=== PATIENT | female | born 1930 | race Caucasian/White ===

== ENCOUNTER 2017-03-01 03:04 | Inpatient (IN) | payer OTHER ==
[~2017-03-01] VITALS: Ht 147.3 cm; Wt 60.9 kg
[~2017-03-01 03:04] MED LIST: ACET325T14 PO; ARANESP; ASPI-621 PO; CARV12.52 PO; CEFD300C37 PO; CHOL200024 PO; CHOL40002 PO; CYAN1TAB29 PO; DARB60DI SQ; FOLI-17 PO; FURO-92 PO; FURO-93 PO; FURO20TA3 PO; GABA-826 PO; IBUP-1221 PO; INSU100C SQ-INSULIN; INSU100I28 SQ-INSULIN; INSU100V5 SQ-INSULIN; INSU100V8 SQ; ISOS30TA8 PO; LISI-167 PO; LISI40TA PO; LOVA40TA2; LOVA40TA2 PO; METO-93 PO; METO-99 PO; MORP15TA; MORP15TA3 PO; MORP30CP12 PO; MORP30TA3 PO; NITR0.4T28 SL; OXYC1TAB7 PO; OXYC5CAP2 PO; RANI150T4 PO; SENN-99 PO; SENN1TAB94 PO; TICA90TA PO; VITAMIN B 12; VITAMIN B12 PO; [UNRECOGNIZED DRUG - REMARK]
[2017-03-01] MEDS ORDERED: MORPHINE SULFATE 4 MG/ML, 1ML IVPush PRN (03:30)
[2017-03-01] MEDS ORDERED: MORPHINE SULFATE 4 MG/ML, 1ML ONE (03:39)
[2017-03-01 03:43] LABS: ASPARTATE AMINO TRANSFERASE 27 U/L (15-37); BLOOD UREA NITROGEN 49 mg/dL (7-18)
[2017-03-01 03:47] LABS: DIFF TOTAL CELLS COUNTED 100 CELL DIFF; HEMATOCRIT 29.3 % (34.6-47.8); HEMOGLOBIN 9.3 g/dL (11.7-16.4)
[2017-03-01 03:50] LABS: ANISOCYTOSIS 2+; HYPOCHROMIA 1+; OVALOCYTES 1+; POIKILOCYTOSIS 1+; POLYCHROMASIA 1+; VERIFY COUNTS? YES
[2017-03-01 03:51] LABS: SCHISTOCYTES 1+
[2017-03-01 03:53] LABS: LARGE PLATELETS 1+
[2017-03-01 03:56] LABS: IS PT STATUS REG ER OR PRE ER? YES
[2017-03-01] MEDS ORDERED: FUROSEMIDE 40 MG/4 ML IV ONE (04:30)
[2017-03-01] MEDS ORDERED: NITROGLYCERIN/D5W PMX 250 ML IV SCH (04:34)
[2017-03-01] MEDS ORDERED: HEPARIN 25,000 UNITS/500ML PMX 500 ML ONE (04:50)
[2017-03-01] MEDS ORDERED: FUROSEMIDE 40 MG/4 ML ONE (04:52)
[2017-03-01] MEDS ORDERED: NITROGLYCERIN SINGLE TAB 0.4 MG SL ONE (05:00)
[2017-03-01] MEDS ORDERED: HEPARIN 5,000 UNITS/ML, 1ML IV ONE (05:00)
[2017-03-01] MEDS: HEPARIN 25,000 UNITS/500ML PMX 500 ML IV PRN ×2 (05:08→05:10)
[2017-03-01 06:21] LABS: ABG COLLECTION SITE RIGHT RADIAL; COLLATERAL CIRCULATION TESTING NORMAL
[2017-03-01] MEDS ORDERED: ONDANSETRON 2MG/ML, 2ML IVPush PRN (07:30)
[2017-03-01] MEDS ORDERED: FUROSEMIDE 20 MG TABLET PO SCH (09:00)
[2017-03-01] MEDS ORDERED: CEFTRIAXONE 1,000 MG IM SCH (09:00)
[2017-03-01] MEDS ORDERED: CEFTRIAXONE PMX 1GM/50ML 50 ML ONE (09:15)
[2017-03-01] MEDS: CARVEDILOL 12.5 MG TABLET PO SCH ×2 (09:53→17:43)
[2017-03-01] MEDS: ISOSORBIDE MONONITRATE ER 30 MG TABLET PO SCH (09:53)
[2017-03-01] MEDS: SODIUM CHLORIDE FLUSH 10ML SYR IVF SCH ×2 (09:53→20:28)
[2017-03-01] MEDS: TICAGRELOR 90 MG TABLET PO SCH ×2 (09:53→20:28)
[2017-03-01] MEDS: GABAPENTIN 100 MG CAPSULE PO SCH ×3 (09:53→20:28)
[2017-03-01 12:23] LABS: IS PT STATUS REG ER OR PRE ER? YES
[2017-03-01 13:07] VITALS: BP 151/69
[2017-03-01 13:15] VITALS: BP 146/68
[2017-03-01] MEDS: HEPARIN 5,000 UNITS/ML, 1ML IV PRN ×2 (13:28→20:21)
[2017-03-01 13:48] VITALS: BP 146/68
[2017-03-01] MEDS: INSULIN ASPART 100 UNITS/ML, PEN SQ-INSULIN SCH ×3 (15:58→20:30)
[2017-03-01] MEDS: FUROSEMIDE 40 MG/4 ML IV SCH (16:23)
[2017-03-01 18:39] VITALS: BP 124/62
[2017-03-01 19:26] LABS: IS PT STATUS REG ER OR PRE ER? NO
[2017-03-01 20:46] LABS: PATH.CAST-FLAG NOT PRESENT; SPERM-FLAG NOT PRESENT; SRC-FLAG NOT PRESENT; XTAL-FLAG NOT PRESENT; YLC-FLAG NOT PRESENT
[2017-03-02 01:43] VITALS: BP 118/68
[2017-03-02 02:27] LABS: BLOOD UREA NITROGEN 46 mg/dL (7-18)
[2017-03-02 02:36] LABS: ASPARTATE AMINO TRANSFERASE 25 U/L (15-37)
[2017-03-02 03:05] LABS: HEMATOCRIT 26.2 % (34.6-47.8); HEMOGLOBIN 8.6 g/dL (11.7-16.4); WHITE BLOOD COUNT 7.5 x10^3/uL (3.4-10)
[2017-03-02 03:06] LABS: DIFF TOTAL CELLS COUNTED 100 CELL DIFF
[2017-03-02 03:13] LABS: ANISOCYTOSIS 2+; VERIFY COUNTS? YES
[2017-03-02 03:14] LABS: HYPOCHROMIA 1+; OVALOCYTES 1+; POIKILOCYTOSIS 1+; POLYCHROMASIA 1+
[2017-03-02 03:15] LABS: ACANTHOCYTES 1+
[2017-03-02 03:17] LABS: LARGE PLATELETS 1+
[2017-03-02] MEDS: HEPARIN 5,000 UNITS/ML, 1ML IV PRN (03:20)
[2017-03-02 06:31] VITALS: BP 137/65
[2017-03-02] MEDS: CARVEDILOL 12.5 MG TABLET PO SCH ×2 (06:31→16:58)
[2017-03-02 07:34] VITALS: BP 163/77
[2017-03-02] MEDS ORDERED: CEFTRIAXONE PMX 1GM/50ML 50 ML IV SCH (08:30)
[2017-03-02] MEDS: ISOSORBIDE MONONITRATE ER 30 MG TABLET PO SCH (09:35)
[2017-03-02] MEDS: FUROSEMIDE 40 MG/4 ML IV SCH ×2 (09:35→16:59)
[2017-03-02] MEDS: GABAPENTIN 100 MG CAPSULE PO SCH ×3 (09:35→21:17)
[2017-03-02] MEDS: TICAGRELOR 90 MG TABLET PO SCH ×2 (09:36→21:17)
[2017-03-02] MEDS: SODIUM CHLORIDE FLUSH 10ML SYR IVF SCH ×2 (09:36→21:18)
[2017-03-02] MEDS: INSULIN ASPART 100 UNITS/ML, PEN SQ-INSULIN SCH ×4 (09:38→21:16)
[2017-03-02] MEDS ORDERED: MAGNESIUM SULFATE PMX 2GM/50ML 50 ML IV ONE (10:30)
[2017-03-02 14:30] VITALS: BP 165/61
[2017-03-02 19:00] VITALS: BP 135/65
[2017-03-03 00:10] VITALS: BP 161/71
[2017-03-03 06:02] LABS: WHITE BLOOD COUNT 6.7 x10^3/uL (3.4-10)
[2017-03-03 06:05] LABS: BLOOD UREA NITROGEN 44 mg/dL (7-18)
[2017-03-03 06:20] VITALS: BP 145/70
[2017-03-03] MEDS: CARVEDILOL 12.5 MG TABLET PO SCH (06:21)
[2017-03-03 06:22] LABS: DIFF TOTAL CELLS COUNTED 100 CELL DIFF
[2017-03-03 06:29] LABS: ANISOCYTOSIS 2+; VERIFY COUNTS? YES
[2017-03-03 06:30] LABS: HYPOCHROMIA 1+; LARGE PLATELETS 1+; OVALOCYTES 1+; POIKILOCYTOSIS 1+; POLYCHROMASIA 1+; TARGET CELLS 1+
[2017-03-03 07:55] VITALS: BP 130/61
[2017-03-03] MEDS: ISOSORBIDE MONONITRATE ER 30 MG TABLET PO SCH (08:17)
[2017-03-03] MEDS: FUROSEMIDE 40 MG/4 ML IV SCH (08:17)
[2017-03-03] MEDS: TICAGRELOR 90 MG TABLET PO SCH (08:17)
[2017-03-03] MEDS: GABAPENTIN 100 MG CAPSULE PO SCH (08:17)
[2017-03-03] MEDS: SODIUM CHLORIDE FLUSH 10ML SYR IVF SCH (08:18)
[2017-03-03] MEDS: INSULIN ASPART 100 UNITS/ML, PEN SQ-INSULIN SCH ×2 (08:18→11:48)
[2017-03-03] MEDS ORDERED: FURO-93 PO (10:53)
== END 2017-03-03 13:56 | disposition home or self-care (01) | DRG 280 ==
LOC: ED 03:52 → EDIP 05:33 → 5SO 12:31 → DCLOUNGE 03-03 13:28
PROVIDERS: ADMIT Surgery; ATTEND Surgery
PROC: 5A09357 Assistance with Respiratory Ventilation, Less than 24 Consecutive Hours, Continuous Positive Airway Pressure (ICD-10-PCS; principal; 2017-03-01)
DX: I21.4 Non-ST elevation (NSTEMI) myocardial infarction (principal); J96.21 Acute and chronic respiratory failure with hypoxia; I50.23 Acute on chronic systolic (congestive) heart failure; N18.4 Chronic kidney disease, stage 4 (severe); N17.9 Acute kidney failure, unspecified; C95.90 Leukemia, unspecified not having achieved remission; I08.1 Rheumatic disorders of both mitral and tricuspid valves; E11.22 Type 2 diabetes mellitus with diabetic chronic kidney disease; I13.0 Hypertensive heart and chronic kidney disease with heart failure and stage 1 through stage 4 chronic kidney disease, or unspecified chronic kidney disease; D46.9 Myelodysplastic syndrome, unspecified; D63.1 Anemia in chronic kidney disease; E78.5 Hyperlipidemia, unspecified; I25.10 Atherosclerotic heart disease of native coronary artery without angina pectoris; I27.20 Pulmonary hypertension, unspecified; M06.9 Rheumatoid arthritis, unspecified; Z79.82 Long term (current) use of aspirin; Z83.3 Family history of diabetes mellitus; Z87.891 Personal history of nicotine dependence; Z91.14 Patient's other noncompliance with medication regimen; I25.2 Old myocardial infarction
CPT/HCPCS: 36415; 36600; 71010; 80048; 80053; 80061; 81001; 82803; 82962; 83036; 83735; 83880; 84100; 84443; 84484; 85025; 85520; 85610; 85730; 93005; 93306; 94660; 96365; 96366; 96368; 96372; 96375; J0696; J1644; J1815; J1940; J3475

== ENCOUNTER 2017-03-07 12:20 | Inpatient (IN) | payer OTHER ==
[~2017-03-07] VITALS: Ht 144.8 cm; Wt 60.1 kg
[2017-03-07] MEDS ORDERED: INSULIN REGULAR 100 UNITS/ML, 3ML VIAL IVPush ONE ×2 (13:30→15:00)
[2017-03-07] MEDS ORDERED: FUROSEMIDE 20 MG/2 ML IV ONE (13:30)
[2017-03-07 13:50] LABS: PH, VENOUS 7.262 pH (7.320-7.420)
[2017-03-07 14:01] LABS: ASPARTATE AMINO TRANSFERASE 78 U/L (15-37); BLOOD UREA NITROGEN 77 mg/dL (7-18)
[2017-03-07] MEDS ORDERED: FUROSEMIDE 20 MG/2 ML ONE (14:07)
[2017-03-07] MEDS ORDERED: INSULIN REGULAR 100 UNITS/ML, 3ML VIAL ONE ×2 (14:09→14:50)
[2017-03-07 14:18] LABS: DIFF TOTAL CELLS COUNTED 100 CELL DIFF
[2017-03-07 14:20] LABS: HEMATOCRIT 27.7 % (34.6-47.8); HEMOGLOBIN 8.9 g/dL (11.7-16.4); WHITE BLOOD COUNT 9.6 x10^3/uL (3.4-10)
[2017-03-07 14:26] LABS: ACANTHOCYTES 1+; ANISOCYTOSIS 2+; HYPOCHROMIA 1+; OVALOCYTES 1+; POLYCHROMASIA 1+; TARGET CELLS 1+
[2017-03-07 14:27] LABS: LARGE PLATELETS 1+; MICROCYTOSIS 1+; VERIFY COUNTS? YES
[2017-03-07] MEDS ORDERED: CALCIUM CHLORIDE 10%, 10ML SYR ONE (14:50)
[2017-03-07] MEDS ORDERED: DEXTROSE 50%, 50ML SYRINGE ONE (14:50)
[2017-03-07] MEDS ORDERED: DEXTROSE 50%, 50ML SYRINGE IVPush ONE (15:00)
[2017-03-07] MEDS ORDERED: SODIUM POLYSTYRENE SULFONATE ORAL SUSP PO ONE (15:00)
[2017-03-07] MEDS ORDERED: CALCIUM CHLORIDE 10%, 10ML SYR IVPush ONE (15:00)
[2017-03-07 17:23] VITALS: BP 162/73
[2017-03-07] MEDS ORDERED: ONDANSETRON 2MG/ML, 2ML IVPush PRN (17:30)
[2017-03-07] MEDS ORDERED: GUAIFENESIN/DM 200-20MG, 10ML UDC PO PRN (17:30)
[2017-03-07] MEDS ORDERED: hydrALAzine 20 MG/ML, 1ML IVPush PRN (17:30)
[2017-03-07] MEDS ORDERED: HEPARIN 5,000 UNITS/ML, 1ML SQ SCH (17:30)
[2017-03-07] MEDS: OXYcodone/APAP 5/325MG TABLET PO SCH ×2 (17:30→21:00)
[2017-03-07] MEDS ORDERED: DOCUSATE 100 MG CAPSULE PO PRN (17:30)
[2017-03-07 18:08] LABS: IS PT STATUS REG ER OR PRE ER? NO
[2017-03-07] MEDS: CARVEDILOL 12.5 MG TABLET PO SCH (18:29)
[2017-03-07] MEDS: GABAPENTIN 100 MG CAPSULE PO SCH ×2 (18:29→22:24)
[2017-03-07] MEDS: FUROSEMIDE 20 MG/2 ML IV SCH (18:39)
[2017-03-07 19:52] VITALS: BP 123/62
[2017-03-07] MEDS ORDERED: INSULIN DETEMIR 100 UNITS/ML, PEN SQ-INSULIN SCH (21:00)
[2017-03-07 21:15] LABS: IS PT STATUS REG ER OR PRE ER? NO
[2017-03-07] MEDS: INSULIN ASPART 100 UNITS/ML, PEN SQ-INSULIN SCH (22:24)
[2017-03-07] MEDS: INSULIN DETEMIR 100 UNITS/ML, PEN SQ-INSULIN SCH (22:24)
[2017-03-07] MEDS: TICAGRELOR 90 MG TABLET PO SCH (22:24)
[2017-03-07] MEDS ORDERED: HEPARIN 25,000 UNITS/500ML PMX 500 ML IV PRN (22:30)
[2017-03-07] MEDS ORDERED: HEPARIN 5,000 UNITS/ML, 1ML IV PRN (22:30)
[2017-03-07] MEDS ORDERED: HEPARIN 5,000 UNITS/ML, 1ML IV ONE (22:30)
[2017-03-08 02:38] VITALS: BP 177/74
[2017-03-08 03:50] VITALS: BP 167/66
[2017-03-08] MEDS: CARVEDILOL 12.5 MG TABLET PO SCH ×2 (06:16→17:20)
[2017-03-08 06:33] LABS: ASPARTATE AMINO TRANSFERASE 39 U/L (15-37); BLOOD UREA NITROGEN 65 mg/dL (7-18)
[2017-03-08 06:37] LABS: IS PT STATUS REG ER OR PRE ER? NO
[2017-03-08] MEDS: INSULIN ASPART 100 UNITS/ML, PEN SQ-INSULIN SCH ×4 (07:00→20:44)
[2017-03-08 07:19] LABS: DIFF TOTAL CELLS COUNTED 100 CELL DIFF; HEMATOCRIT 25.8 % (34.6-47.8); HEMOGLOBIN 8.7 g/dL (11.7-16.4); WHITE BLOOD COUNT 8.9 x10^3/uL (3.4-10)
[2017-03-08 07:23] LABS: ACANTHOCYTES 1+; ANISOCYTOSIS 2+; HYPOCHROMIA 1+; LARGE PLATELETS 1+; MICROCYTOSIS 1+; OVALOCYTES 1+; POLYCHROMASIA 1+; TARGET CELLS 1+; VERIFY COUNTS? YES
[2017-03-08 07:25] VITALS: BP 159/65
[2017-03-08] MEDS: CHOLECALCIFEROL 1,000 UNIT TABLET PO SCH (08:14)
[2017-03-08] MEDS: ISOSORBIDE MONONITRATE ER 30 MG TABLET PO SCH (08:14)
[2017-03-08] MEDS: GABAPENTIN 100 MG CAPSULE PO SCH ×3 (08:14→20:43)
[2017-03-08] MEDS: TICAGRELOR 90 MG TABLET PO SCH ×2 (08:14→20:43)
[2017-03-08] MEDS: CYANOCOBALAMIN 1,000 MCG TABLET PO SCH (08:14)
[2017-03-08] MEDS: FUROSEMIDE 20 MG/2 ML IV SCH ×2 (08:15→17:20)
[2017-03-08] MEDS: OXYcodone/APAP 5/325MG TABLET PO SCH ×4 (08:15→20:45)
[2017-03-08] MEDS ORDERED: POTASSIUM CHLORIDE 20 MEQ TAB.ER.PRT PO ONE (10:00)
[2017-03-08 15:39] VITALS: BP 158/64
[2017-03-08 19:00] VITALS: BP 150/63
[2017-03-08 20:25] VITALS: BP 119/72
[2017-03-08] MEDS: HEPARIN 5,000 UNITS/ML, 1ML SQ SCH (20:43)
[2017-03-08] MEDS: INSULIN DETEMIR 100 UNITS/ML, PEN SQ-INSULIN SCH (20:44)
[2017-03-09 02:33] VITALS: BP 155/68
[2017-03-09 05:45] LABS: BLOOD UREA NITROGEN 61 mg/dL (7-18)
[2017-03-09] MEDS: CARVEDILOL 12.5 MG TABLET PO SCH ×2 (05:45→17:39)
[2017-03-09 05:54] LABS: DIFF TOTAL CELLS COUNTED 100 CELL DIFF; HEMATOCRIT 26.7 % (34.6-47.8); HEMOGLOBIN 8.7 g/dL (11.7-16.4); WHITE BLOOD COUNT 9.6 x10^3/uL (3.4-10)
[2017-03-09 05:57] LABS: ACANTHOCYTES 1+; ANISOCYTOSIS 2+; HYPOCHROMIA 1+; MICROCYTOSIS 1+; OVALOCYTES 1+; POLYCHROMASIA 1+; TARGET CELLS 1+; VERIFY COUNTS? YES
[2017-03-09 05:58] LABS: SCHISTOCYTES 1+
[2017-03-09 05:59] LABS: LARGE PLATELETS 1+; SPHEROCYTES 1+
[2017-03-09 08:10] VITALS: BP 150/69
[2017-03-09] MEDS ORDERED: POTASSIUM CHLORIDE 20 MEQ TAB.ER.PRT PO SCH (08:30)
[2017-03-09] MEDS: HEPARIN 5,000 UNITS/ML, 1ML SQ SCH ×2 (08:50→22:10)
[2017-03-09] MEDS: CYANOCOBALAMIN 1,000 MCG TABLET PO SCH (08:51)
[2017-03-09] MEDS: TICAGRELOR 90 MG TABLET PO SCH ×2 (08:51→21:00)
[2017-03-09] MEDS: ISOSORBIDE MONONITRATE ER 30 MG TABLET PO SCH (08:51)
[2017-03-09] MEDS: CHOLECALCIFEROL 1,000 UNIT TABLET PO SCH (08:51)
[2017-03-09] MEDS: GABAPENTIN 100 MG CAPSULE PO SCH ×3 (08:51→22:09)
[2017-03-09] MEDS: POTASSIUM CHLORIDE 20 MEQ TAB.ER.PRT PO SCH ×2 (08:51→17:52)
[2017-03-09] MEDS: OXYcodone/APAP 5/325MG TABLET PO SCH ×3 (08:52→22:09)
[2017-03-09] MEDS: INSULIN ASPART 100 UNITS/ML, PEN SQ-INSULIN SCH ×4 (08:53→22:11)
[2017-03-09] MEDS ORDERED: MAGNESIUM SULFATE PMX 2GM/50ML 50 ML IV ONE (14:30)
[2017-03-09 15:34] VITALS: BP 178/67
[2017-03-09] MEDS: FUROSEMIDE 40 MG/4 ML IV SCH (17:53)
[2017-03-09 18:49] VITALS: BP 151/63
[2017-03-09] MEDS ORDERED: INSULIN DETEMIR 100 UNITS/ML, PEN SQ-INSULIN SCH (21:00)
[2017-03-10 00:48] VITALS: BP 161/66
[2017-03-10 05:45] LABS: BLOOD UREA NITROGEN 51 mg/dL (7-18)
[2017-03-10] MEDS: CARVEDILOL 12.5 MG TABLET PO SCH (06:32)
[2017-03-10] MEDS: INSULIN ASPART 100 UNITS/ML, PEN SQ-INSULIN SCH ×2 (07:00→11:32)
[2017-03-10 07:05] LABS: HEMATOCRIT 29.6 % (34.6-47.8); HEMOGLOBIN 9.5 g/dL (11.7-16.4)
[2017-03-10 07:06] LABS: DIFF TOTAL CELLS COUNTED 100 CELL DIFF
[2017-03-10 07:10] LABS: ANISOCYTOSIS 2+; HYPOCHROMIA 1+; OVALOCYTES 1+; POLYCHROMASIA 1+; SPHEROCYTES 1+
[2017-03-10 07:12] LABS: ACANTHOCYTES 1+; SCHISTOCYTES 1+; TARGET CELLS 1+
[2017-03-10 07:13] LABS: LARGE PLATELETS 1+
[2017-03-10 08:53] VITALS: BP 171/72
[2017-03-10] MEDS: OXYcodone/APAP 5/325MG TABLET PO SCH (09:00)
[2017-03-10] MEDS: CHOLECALCIFEROL 1,000 UNIT TABLET PO SCH (09:20)
[2017-03-10] MEDS: TICAGRELOR 90 MG TABLET PO SCH (09:21)
[2017-03-10] MEDS: ISOSORBIDE MONONITRATE ER 30 MG TABLET PO SCH (09:21)
[2017-03-10] MEDS: FUROSEMIDE 40 MG/4 ML IV SCH (09:21)
[2017-03-10] MEDS: CYANOCOBALAMIN 1,000 MCG TABLET PO SCH (09:21)
[2017-03-10] MEDS: HEPARIN 5,000 UNITS/ML, 1ML SQ SCH (09:21)
[2017-03-10] MEDS: GABAPENTIN 100 MG CAPSULE PO SCH (09:21)
[2017-03-10] MEDS: POTASSIUM CHLORIDE 20 MEQ TAB.ER.PRT PO SCH (09:21)
[2017-03-10] MEDS ORDERED: POTA20TA6 PO (12:49)
[2017-03-10] MEDS ORDERED: FURO40TA6 PO (12:49)
[2017-03-10] MEDS ORDERED: INSU100I28 SQ-INSULIN (12:49)
== END 2017-03-10 15:21 | disposition home or self-care (01) | DRG 682 ==
LOC: ED 14:00 → EDIP 14:37 → 4EST 17:40
PROVIDERS: ADMIT Internal Medicine; ATTEND Internal Medicine
DX: N17.9 Acute kidney failure, unspecified (principal); I50.23 Acute on chronic systolic (congestive) heart failure; E46 Unspecified protein-calorie malnutrition; E11.22 Type 2 diabetes mellitus with diabetic chronic kidney disease; I13.0 Hypertensive heart and chronic kidney disease with heart failure and stage 1 through stage 4 chronic kidney disease, or unspecified chronic kidney disease; N18.4 Chronic kidney disease, stage 4 (severe); E11.65 Type 2 diabetes mellitus with hyperglycemia; E87.5 Hyperkalemia; I25.10 Atherosclerotic heart disease of native coronary artery without angina pectoris; M06.9 Rheumatoid arthritis, unspecified; E78.5 Hyperlipidemia, unspecified; D46.9 Myelodysplastic syndrome, unspecified; E87.6 Hypokalemia; Z66 Do not resuscitate; Z79.4 Long term (current) use of insulin; Z90.710 Acquired absence of both cervix and uterus; Z91.14 Patient's other noncompliance with medication regimen; Z68.28 Body mass index [BMI] 28.0-28.9, adult; Z90.49 Acquired absence of other specified parts of digestive tract
CPT/HCPCS: 36415; 71010; 80048; 80053; 81001; 82010; 82306; 82803; 82962; 83735; 83880; 83970; 84100; 84484; 85025; 85520; 93005; 96374; 96375; J1644; J1815; J1940; J0360; J3475

== ENCOUNTER 2018-02-16 09:17 | Inpatient (IN) | payer OTHER ==
[~2018-02-16] VITALS: Ht 147.3 cm; Wt 60.1 kg
[~2018-02-16 09:17] MED LIST changes: +ALLO100T30 PO; +ASPI-496 PO; -ASPI-621 PO; +ASPI81TA45 PO; +CLOP75TA PO; +ERGO500017 PO; +FURO40TA6 PO; +INSU100V13 SC; +METH500T7 PO; +POTA10CA PO; +POTA20TA6 PO; +PRED5TAB PO; +SENN1TAB8 PO
[2018-02-16] MEDS ORDERED: HYDROmorphone 2 MG/ML, 1ML IM ONE (11:30)
[2018-02-16] MEDS ORDERED: ONDANSETRON ODT 4 MG PO ONE (11:30)
[2018-02-16] MEDS ORDERED: HYDROmorphone 2 MG/ML, 1ML ONE (11:36)
[2018-02-16] MEDS ORDERED: ONDANSETRON ODT 4 MG ONE (11:36)
[2018-02-16 12:52] LABS: CALCIUM 6.7 mg/dL (8.5-10.1); CHLORIDE 109 mmol/L (98-107)
[2018-02-16 12:56] LABS: ALBUMIN 3.3 g/dL (3.4-5.0); ANION GAP 11 mmol/L (5-15); CREATININE 4.66 mg/dL (0.55-1.02)
[2018-02-16] MEDS ORDERED: INSU100C SQ-INSULIN (12:58)
[2018-02-16] MEDS ORDERED: SODIUM CHLORIDE FLUSH 10ML SYR IVF PRN (13:00)
[2018-02-16 13:10] LABS: MEAN CORPUSCULAR HEMOGLOBIN 34.3 pg (27.0-34.8); MEAN CORPUSCULAR VOLUME 105.8 fL (80-100); RED BLOOD COUNT 2.58 x10^6/uL (3.82-5.3)
[2018-02-16 13:11] LABS: MEAN CORPUSCULAR HGB CONC 32.3 g/dL (32.4-35.8); RED CELL DISTRIBUTION WIDTH 28.2 % (9.6-15.2)
[2018-02-16 13:12] LABS: MEAN PLATELET VOLUME 12.6 fL (7.4-10.4); PLATELET COUNT 139 x10^3/uL (130-400)
[2018-02-16 13:13] LABS: MD YES
[2018-02-16] MEDS ORDERED: SODIUM CHLORIDE 0.9% 1,000 ML IV SCH (13:16)
[2018-02-16 13:20] LABS: ANISOCYTOSIS 1+; LYMPH#(MANUAL) 0.63 x10^3/uL (1-3.4); LYMPHS% (MANUAL) 8 % (22-44); MONOS#(MANUAL) 0.32 x10^3/uL (0.3-2.7); MONOS% (MANUAL) 4 % (2-9); NRBC % (MANUAL) 6 % (0-1); SEG#(MANUAL) 6.95 x10^3/uL (1.8-6.8); SEGS% (MANUAL) 88 % (42-75)
[2018-02-16 13:21] LABS: HYPOCHROMIA 1+; OVALOCYTES 1+
[2018-02-16 13:28] LABS: <PLATELET ESTIMATE> ADEQUATE; <PLT MORPHOLOGY> NORMAL PLT MORPH
[2018-02-16] MEDS ORDERED: LIDODERM 5% PATCH TD SCH (13:30)
[2018-02-16] MEDS ORDERED: hydrALAzine 20 MG/ML, 1ML IVPush PRN (13:30)
[2018-02-16] MEDS ORDERED: POLYETHYLENE GLYCOL 17 GM PACKET PO PRN (13:30)
[2018-02-16] MEDS ORDERED: BISACODYL 10 MG SUPP PR PRN (13:30)
[2018-02-16] MEDS ORDERED: ERGOCALCIFEROL 50,000 UNIT CAPSULE PO SCH (13:30)
[2018-02-16] MEDS ORDERED: BACLOFEN 10 MG TABLET PO PRN (13:30)
[2018-02-16] MEDS: HEPARIN 5,000 UNITS/ML, 1ML SQ SCH ×2 (13:30→20:47)
[2018-02-16] MEDS ORDERED: [UNRECOGNIZED DRUG - REMARK] MC SCH (14:00)
[2018-02-16 14:09] VITALS: BP 150/71
[2018-02-16] MEDS: OXYcodone/APAP 5/325MG TABLET PO PRN ×2 (14:59→23:25)
[2018-02-16] MEDS ORDERED: OXYcodone/APAP 5/325MG TABLET PO SCH (16:00)
[2018-02-16] MEDS: INSULIN LISPRO 100 UNITS/ML, PEN SQ-INSULIN SCH ×2 (16:00→20:54)
[2018-02-16] MEDS: GABAPENTIN 100 MG CAPSULE PO SCH ×2 (16:16→20:47)
[2018-02-16] MEDS: CARVEDILOL 12.5 MG TABLET PO SCH (16:17)
[2018-02-16 19:44] VITALS: BP 106/59
[2018-02-16] MEDS ORDERED: FUROSEMIDE 40 MG TABLET PO SCH (21:00)
[2018-02-16] MEDS: INSULIN GLARGINE 100 UNITS/ML, PEN SQ-INSULIN SCH (21:20)
[2018-02-17 02:19] VITALS: BP 115/63
[2018-02-17 04:49] LABS: ANION GAP 10 mmol/L (5-15); CHLORIDE 110 mmol/L (98-107)
[2018-02-17 04:50] LABS: CREATININE 4.76 mg/dL (0.55-1.02)
[2018-02-17 04:53] LABS: CALCIUM 5.9 mg/dL (8.5-10.1)
[2018-02-17] MEDS: HEPARIN 5,000 UNITS/ML, 1ML SQ SCH ×3 (05:56→22:06)
[2018-02-17] MEDS: CARVEDILOL 12.5 MG TABLET PO SCH ×2 (06:13→17:13)
[2018-02-17 06:58] VITALS: BP 94/57
[2018-02-17] MEDS: INSULIN LISPRO 100 UNITS/ML, PEN SQ-INSULIN SCH ×4 (07:00→22:12)
[2018-02-17] MEDS ORDERED: PHARMACY MAY ADJ FOR RENAL FX MC PRN (09:30)
[2018-02-17] MEDS ORDERED: MORPHINE SULFATE 4 MG/ML, 1ML IVPush PRN (09:30)
[2018-02-17] MEDS: ISOSORBIDE MONONITRATE ER 30 MG TABLET PO SCH (09:48)
[2018-02-17] MEDS: CLOPIDOGREL 75 MG TABLET PO SCH (09:49)
[2018-02-17] MEDS: GABAPENTIN 100 MG CAPSULE PO SCH ×3 (09:49→22:06)
[2018-02-17] MEDS: ASPIRIN 81 MG TABLET EC PO SCH (09:49)
[2018-02-17 10:21] VITALS: BP 101/57
[2018-02-17 11:00] LABS: THYROID STIMULATING HORMONE 3.02 mIU/L (0.358-3.740)
[2018-02-17] MEDS: METHOCARBAMOL 500 MG TABLET PO SCH ×3 (12:31→22:09)
[2018-02-17] MEDS: OXYcodone/APAP 5/325MG TABLET PO PRN (12:31)
[2018-02-17] MEDS ORDERED: LIDODERM 5% PATCH TD SCH (13:30)
[2018-02-17 16:04] VITALS: BP 93/56
[2018-02-17 17:11] VITALS: BP 94/53
[2018-02-17 19:38] VITALS: BP 102/56
[2018-02-17] MEDS: DOCUSATE 100 MG CAPSULE PO PRN (22:05)
[2018-02-17] MEDS: CALCIUM CARBONATE 500 MG TABLET PO SCH (22:06)
[2018-02-17] MEDS: ONDANSETRON 2MG/ML, 2ML IVPush PRN (22:06)
[2018-02-17] MEDS: INSULIN GLARGINE 100 UNITS/ML, PEN SQ-INSULIN SCH (22:11)
[2018-02-18] VITALS (7 sets, daily range): BP systolic 84–124; BP diastolic 49–71
[2018-02-18 06:02] LABS: ALBUMIN 2.9 g/dL (3.4-5.0); ANION GAP 13 mmol/L (5-15); CHLORIDE 109 mmol/L (98-107)
[2018-02-18 06:06] LABS: ALANINE AMINOTRANSFERASE 32 U/L (12-78); ALKALINE PHOSPHATASE 74 U/L (45-117); BILIRUBIN,TOTAL 0.6 mg/dL (0.2-1.0); CALCIUM 5.9 mg/dL (8.5-10.1); TOTAL PROTEIN 5.9 g/dL (6.4-8.2)
[2018-02-18] MEDS: HEPARIN 5,000 UNITS/ML, 1ML SQ SCH ×3 (06:10→21:09)
[2018-02-18] MEDS: CARVEDILOL 12.5 MG TABLET PO SCH ×2 (06:10→16:50)
[2018-02-18] MEDS: METHOCARBAMOL 500 MG TABLET PO SCH (06:10)
[2018-02-18 06:35] LABS: MD YES
[2018-02-18 06:37] LABS: MEAN CORPUSCULAR HEMOGLOBIN 35.3 pg (27.0-34.8); MEAN CORPUSCULAR HGB CONC 33.2 g/dL (32.4-35.8); MEAN CORPUSCULAR VOLUME 106.3 fL (80-100); MEAN PLATELET VOLUME 13.8 fL (7.4-10.4); PLATELET COUNT 125 x10^3/uL (130-400); RED BLOOD COUNT 2.39 x10^6/uL (3.82-5.3); RED CELL DISTRIBUTION WIDTH 27.9 % (9.6-15.2)
[2018-02-18 06:42] LABS: ANISOCYTOSIS 2+; BAND#(MANUAL) 0.18 x10^3/uL; BANDS%(MANUAL) 3 % (0-7); HYPOCHROMIA 1+; LYMPH#(MANUAL) 0.83 x10^3/uL (1-3.4); LYMPHS% (MANUAL) 14 % (22-44); MONOS#(MANUAL) 0.71 x10^3/uL (0.3-2.7); MONOS% (MANUAL) 12 % (2-9); NRBC % (MANUAL) 6 % (0-1); OVALOCYTES 1+; POLYCHROMASIA 1+; SEG#(MANUAL) 4.19 x10^3/uL (1.8-6.8); SEGS% (MANUAL) 71 % (42-75)
[2018-02-18 06:43] LABS: CRENATED 1+; SCHISTOCYTES 1+; TARGET CELLS 2+
[2018-02-18 06:44] LABS: <PLATELET ESTIMATE> ADEQUATE; LARGE PLATELETS 1+
[2018-02-18] MEDS: ONDANSETRON 2MG/ML, 2ML IVPush PRN (09:07)
[2018-02-18] MEDS: INSULIN LISPRO 100 UNITS/ML, PEN SQ-INSULIN SCH ×4 (09:08→20:37)
[2018-02-18] MEDS: ISOSORBIDE MONONITRATE ER 30 MG TABLET PO SCH (10:00)
[2018-02-18] MEDS: ASPIRIN 81 MG TABLET EC PO SCH (10:00)
[2018-02-18] MEDS: CLOPIDOGREL 75 MG TABLET PO SCH (10:00)
[2018-02-18] MEDS: CALCIUM CARBONATE 500 MG TABLET PO SCH ×2 (10:00→21:15)
[2018-02-18] MEDS ORDERED: PHARMACY MAY ADJ FOR RENAL FX MC PRN (11:00)
[2018-02-18] MEDS: SEVELAMER CARBONATE 800MG TAB PO SCH ×2 (12:00→16:50)
[2018-02-18] MEDS: LIDODERM 5% PATCH TD SCH (13:30)
[2018-02-18] MEDS ORDERED: LACTULOSE 20 GM/30 ML UDC PR ONE (16:00)
[2018-02-18 18:34] LABS: O2 FLOW ROOM AIR L/min
[2018-02-18] MEDS: SODIUM BICARBONATE 8.4% 100 MEQ in DEXTROSE 5% 1,000 ML IV SCH (21:09)
[2018-02-19 00:42] VITALS: BP 123/70
[2018-02-19 05:22] VITALS: BP 132/79
[2018-02-19] MEDS: CARVEDILOL 12.5 MG TABLET PO SCH ×2 (05:24→17:49)
[2018-02-19] MEDS: HEPARIN 5,000 UNITS/ML, 1ML SQ SCH ×3 (05:24→21:12)
[2018-02-19 05:41] LABS: MEAN CORPUSCULAR HEMOGLOBIN 35.2 pg (27.0-34.8); MEAN CORPUSCULAR HGB CONC 32.9 g/dL (32.4-35.8); MEAN CORPUSCULAR VOLUME 107.2 fL (80-100); MEAN PLATELET VOLUME 13.4 fL (7.4-10.4); PLATELET COUNT 119 x10^3/uL (130-400); RED BLOOD COUNT 2.33 x10^6/uL (3.82-5.3); RED CELL DISTRIBUTION WIDTH 27.4 % (9.6-15.2)
[2018-02-19 05:44] LABS: ALBUMIN 2.8 g/dL (3.4-5.0); CALCIUM 6.3 mg/dL (8.5-10.1); CHLORIDE 108 mmol/L (98-107)
[2018-02-19 05:51] LABS: ALANINE AMINOTRANSFERASE 25 U/L (12-78); ALKALINE PHOSPHATASE 71 U/L (45-117); ANION GAP 12 mmol/L (5-15); BILIRUBIN,TOTAL 0.7 mg/dL (0.2-1.0); CREATININE 5.23 mg/dL (0.55-1.02); TOTAL PROTEIN 5.6 g/dL (6.4-8.2)
[2018-02-19 06:06] LABS: MD YES
[2018-02-19 06:10] LABS: BAND#(MANUAL) 0.07 x10^3/uL; BANDS%(MANUAL) 1 % (0-7); EOS#(MANUAL) 0.07 x10^3/uL (0.0-0.4); EOS% (MANUAL) 1 % (1-7); LYMPH#(MANUAL) 0.34 x10^3/uL (1-3.4); LYMPHS% (MANUAL) 5 % (22-44); MONOS#(MANUAL) 2.11 x10^3/uL (0.3-2.7); MONOS% (MANUAL) 31 % (2-9); SEG#(MANUAL) 4.22 x10^3/uL (1.8-6.8); SEGS% (MANUAL) 62 % (42-75)
[2018-02-19 06:11] LABS: ANISOCYTOSIS 2+
[2018-02-19 06:12] LABS: CRENATED 1+; HYPOCHROMIA 1+; OVALOCYTES 1+; POLYCHROMASIA 1+; SCHISTOCYTES 1+; TARGET CELLS 2+
[2018-02-19 06:13] LABS: <PLATELET ESTIMATE> ADEQUATE; LARGE PLATELETS 1+
[2018-02-19] MEDS: INSULIN LISPRO 100 UNITS/ML, PEN SQ-INSULIN SCH ×4 (07:00→21:10)
[2018-02-19 07:36] VITALS: BP 139/74
[2018-02-19] MEDS: SEVELAMER CARBONATE 800MG TAB PO SCH ×3 (08:00→17:49)
[2018-02-19] MEDS: LIDODERM 5% PATCH TD SCH (08:18)
[2018-02-19] MEDS: CLOPIDOGREL 75 MG TABLET PO SCH (08:18)
[2018-02-19] MEDS: ASPIRIN 81 MG TABLET EC PO SCH (08:18)
[2018-02-19] MEDS: CALCIUM CARBONATE 500 MG TABLET PO SCH ×2 (08:19→21:11)
[2018-02-19] MEDS: ISOSORBIDE MONONITRATE ER 30 MG TABLET PO SCH (08:19)
[2018-02-19] MEDS: SODIUM BICARBONATE 8.4% 100 MEQ in DEXTROSE 5% 1,000 ML IV SCH (09:18)
[2018-02-19 12:37] VITALS: BP 120/52
[2018-02-19] MEDS: ACETAMINOPHEN 325 MG TABLET PO PRN ×2 (13:53→21:11)
[2018-02-19 19:06] VITALS: BP 94/50
[2018-02-19] MEDS ORDERED: SODIUM BICARBONATE 8.4% 100 MEQ in DEXTROSE 5% 1,000 ML IV SCH (20:00)
[2018-02-19] MEDS: INSULIN GLARGINE 100 UNITS/ML, PEN SQ-INSULIN SCH (21:11)
[2018-02-20 01:30] VITALS: BP 114/66
[2018-02-20 05:51] LABS: ANION GAP 9 mmol/L (5-15); CALCIUM 6.5 mg/dL (8.5-10.1); CHLORIDE 102 mmol/L (98-107)
[2018-02-20 05:53] LABS: CREATININE 4.97 mg/dL (0.55-1.02)
[2018-02-20] MEDS: CARVEDILOL 12.5 MG TABLET PO SCH ×2 (06:12→16:46)
[2018-02-20] MEDS: HEPARIN 5,000 UNITS/ML, 1ML SQ SCH ×3 (06:13→20:30)
[2018-02-20 06:27] LABS: MEAN CORPUSCULAR HEMOGLOBIN 34.8 pg (27.0-34.8); MEAN CORPUSCULAR HGB CONC 32.7 g/dL (32.4-35.8); MEAN CORPUSCULAR VOLUME 106.4 fL (80-100); MEAN PLATELET VOLUME 14.1 fL (7.4-10.4); PLATELET COUNT 129 x10^3/uL (130-400); RED BLOOD COUNT 2.47 x10^6/uL (3.82-5.3)
[2018-02-20 07:31] LABS: MD YES
[2018-02-20 07:34] LABS: ANISOCYTOSIS 2+; BAND#(MANUAL) 0.13 x10^3/uL; BANDS%(MANUAL) 2 % (0-7); LYMPH#(MANUAL) 0.45 x10^3/uL (1-3.4); LYMPHS% (MANUAL) 7 % (22-44); MONOS% (MANUAL) 25 % (2-9); NRBC % (MANUAL) 1 % (0-1); SEG#(MANUAL) 4.22 x10^3/uL (1.8-6.8); SEGS% (MANUAL) 66 % (42-75)
[2018-02-20 07:35] LABS: HYPOCHROMIA 1+; OVALOCYTES 1+; POLYCHROMASIA 1+; SCHISTOCYTES 1+; TARGET CELLS 2+
[2018-02-20 07:36] LABS: <PLATELET ESTIMATE> ADEQUATE; LARGE PLATELETS 1+
[2018-02-20] MEDS: CALCIUM CARBONATE 500 MG TABLET PO SCH ×2 (08:38→20:08)
[2018-02-20] MEDS: SEVELAMER CARBONATE 800MG TAB PO SCH ×3 (08:38→16:46)
[2018-02-20] MEDS: ISOSORBIDE MONONITRATE ER 30 MG TABLET PO SCH (08:39)
[2018-02-20] MEDS: CLOPIDOGREL 75 MG TABLET PO SCH (08:39)
[2018-02-20] MEDS: ASPIRIN 81 MG TABLET EC PO SCH (08:39)
[2018-02-20] MEDS: INSULIN LISPRO 100 UNITS/ML, PEN SQ-INSULIN SCH ×4 (08:42→20:31)
[2018-02-20] MEDS: METHOCARBAMOL 500 MG TABLET PO PRN (09:11)
[2018-02-20 09:30] VITALS: BP 152/72
[2018-02-20] MEDS: ACETAMINOPHEN 325 MG TABLET PO PRN ×2 (11:57→20:08)
[2018-02-20] MEDS: LIDODERM 5% PATCH TD SCH (11:58)
[2018-02-20 13:42] VITALS: BP 135/71
[2018-02-20 18:56] VITALS: BP 144/70
[2018-02-20] MEDS: OXYcodone/APAP 5/325MG TABLET PO PRN (20:08)
[2018-02-20] MEDS: INSULIN GLARGINE 100 UNITS/ML, PEN SQ-INSULIN SCH (20:30)
[2018-02-21 00:50] VITALS: BP 153/75
[2018-02-21] MEDS: ACETAMINOPHEN 325 MG TABLET PO PRN ×2 (05:30→23:43)
[2018-02-21] MEDS: METHOCARBAMOL 500 MG TABLET PO PRN (05:30)
[2018-02-21] MEDS: CARVEDILOL 12.5 MG TABLET PO SCH ×2 (05:31→16:52)
[2018-02-21] MEDS: HEPARIN 5,000 UNITS/ML, 1ML SQ SCH ×3 (05:31→21:02)
[2018-02-21 06:19] LABS: MEAN CORPUSCULAR HEMOGLOBIN 34.8 pg (27.0-34.8); MEAN CORPUSCULAR HGB CONC 32.8 g/dL (32.4-35.8); MEAN CORPUSCULAR VOLUME 106.1 fL (80-100); RED CELL DISTRIBUTION WIDTH 27.8 % (9.6-15.2)
[2018-02-21 06:31] LABS: CHLORIDE 97 mmol/L (98-107)
[2018-02-21 06:36] LABS: ALANINE AMINOTRANSFERASE 27 U/L (12-78); ALBUMIN 2.8 g/dL (3.4-5.0); ALKALINE PHOSPHATASE 80 U/L (45-117); ANION GAP 9 mmol/L (5-15); BILIRUBIN,TOTAL 0.8 mg/dL (0.2-1.0); CALCIUM 6.4 mg/dL (8.5-10.1); CREATININE 4.19 mg/dL (0.55-1.02)
[2018-02-21 06:41] LABS: MD YES; MEAN PLATELET VOLUME 10.1 fL (7.4-10.4); PLATELET COUNT 94 x10^3/uL (130-400)
[2018-02-21 06:44] LABS: BAND#(MANUAL) 0.13 x10^3/uL; BANDS%(MANUAL) 2 % (0-7); LYMPH#(MANUAL) 0.94 x10^3/uL (1-3.4); LYMPHS% (MANUAL) 14 % (22-44); MONOS#(MANUAL) 1.54 x10^3/uL (0.3-2.7); MONOS% (MANUAL) 23 % (2-9); SEG#(MANUAL) 4.09 x10^3/uL (1.8-6.8); SEGS% (MANUAL) 61 % (42-75)
[2018-02-21 06:45] LABS: ANISOCYTOSIS 2+; HYPOCHROMIA 1+; OVALOCYTES 1+; POLYCHROMASIA 1+; SCHISTOCYTES 1+; TARGET CELLS 2+
[2018-02-21 06:46] LABS: <PLATELET ESTIMATE> DECREASED; BASOPHILLIC STIPPLING 1+; GIANT PLATELETS 1+; LARGE PLATELETS 1+
[2018-02-21 07:28] VITALS: BP 151/74
[2018-02-21] MEDS: INSULIN LISPRO 100 UNITS/ML, PEN SQ-INSULIN SCH ×4 (09:00→21:02)
[2018-02-21] MEDS: SEVELAMER CARBONATE 800MG TAB PO SCH ×3 (09:03→16:52)
[2018-02-21] MEDS: CALCIUM CARBONATE 500 MG TABLET PO SCH ×3 (09:03→21:02)
[2018-02-21] MEDS: CLOPIDOGREL 75 MG TABLET PO SCH (09:03)
[2018-02-21] MEDS: ASPIRIN 81 MG TABLET EC PO SCH (09:03)
[2018-02-21] MEDS: ISOSORBIDE MONONITRATE ER 30 MG TABLET PO SCH (09:04)
[2018-02-21] MEDS: OXYcodone/APAP 5/325MG TABLET PO PRN (12:31)
[2018-02-21 13:08] VITALS: BP 149/82
[2018-02-21] MEDS: LIDODERM 5% PATCH TD SCH (13:59)
[2018-02-21] MEDS ORDERED: CALCIUM CARBONATE 500 MG TAB.CHEW PO PRN (17:00)
[2018-02-21 19:52] VITALS: BP 119/67
[2018-02-21] MEDS: INSULIN GLARGINE 100 UNITS/ML, PEN SQ-INSULIN SCH (21:02)
[2018-02-22 01:09] VITALS: BP 149/78
[2018-02-22 05:37] LABS: ANION GAP 9 mmol/L (5-15); CALCIUM 6.5 mg/dL (8.5-10.1); CHLORIDE 100 mmol/L (98-107); CREATININE 3.65 mg/dL (0.55-1.02)
[2018-02-22 06:07] VITALS: BP 165/81
[2018-02-22] MEDS: CALCIUM CARBONATE 500 MG TABLET PO SCH ×2 (06:13→13:54)
[2018-02-22] MEDS: ACETAMINOPHEN 325 MG TABLET PO PRN ×3 (06:13→15:40)
[2018-02-22] MEDS: CARVEDILOL 12.5 MG TABLET PO SCH (06:14)
[2018-02-22] MEDS: INSULIN LISPRO 100 UNITS/ML, PEN SQ-INSULIN SCH ×2 (07:00→11:00)
[2018-02-22 07:25] VITALS: BP 136/71
[2018-02-22] MEDS: HEPARIN 5,000 UNITS/ML, 1ML SQ SCH ×2 (07:58→15:48)
[2018-02-22] MEDS: SEVELAMER CARBONATE 800MG TAB PO SCH ×2 (08:36→12:00)
[2018-02-22] MEDS: CLOPIDOGREL 75 MG TABLET PO SCH (08:36)
[2018-02-22] MEDS: ISOSORBIDE MONONITRATE ER 30 MG TABLET PO SCH (08:36)
[2018-02-22] MEDS: ASPIRIN 81 MG TABLET EC PO SCH (08:36)
[2018-02-22] MEDS ORDERED: SEVE800T8 PO (12:38)
[2018-02-22] MEDS ORDERED: LIDO700A20 TD (12:38)
[2018-02-22] MEDS ORDERED: METH500T7 PO (12:38)
[2018-02-22 12:59] VITALS: BP 137/71
[2018-02-22] MEDS: LIDODERM 5% PATCH TD SCH (13:30)
[2018-02-22] MEDS: DOCUSATE 100 MG CAPSULE PO PRN (13:54)
== END 2018-02-22 15:57 | DRG 183 ==
LOC: ED 11:26 → EDIP 12:35 → 3NW 13:16 → 4EST 02-17 11:34
PROVIDERS: ADMIT Internal Medicine; ATTEND Internal Medicine
DX: S22.41XA Multiple fractures of ribs, right side, initial encounter for closed fracture (principal); G93.41 Metabolic encephalopathy; E44.1 Mild protein-calorie malnutrition; I50.32 Chronic diastolic (congestive) heart failure; N18.5 Chronic kidney disease, stage 5; I13.2 Hypertensive heart and chronic kidney disease with heart failure and with stage 5 chronic kidney disease, or end stage renal disease; F11.20 Opioid dependence, uncomplicated; E87.2 Acidosis; N17.9 Acute kidney failure, unspecified; D46.9 Myelodysplastic syndrome, unspecified; E11.21 Type 2 diabetes mellitus with diabetic nephropathy; G89.29 Other chronic pain; E11.22 Type 2 diabetes mellitus with diabetic chronic kidney disease; E11.40 Type 2 diabetes mellitus with diabetic neuropathy, unspecified; M06.9 Rheumatoid arthritis, unspecified; E78.5 Hyperlipidemia, unspecified; I25.10 Atherosclerotic heart disease of native coronary artery without angina pectoris; E11.65 Type 2 diabetes mellitus with hyperglycemia; E21.3 Hyperparathyroidism, unspecified; D69.6 Thrombocytopenia, unspecified; E55.9 Vitamin D deficiency, unspecified; E87.6 Hypokalemia; Z66 Do not resuscitate; M85.88 Other specified disorders of bone density and structure, other site; W07.XXXA Fall from chair, initial encounter; Z90.49 Acquired absence of other specified parts of digestive tract; Z68.27 Body mass index [BMI] 27.0-27.9, adult; Z88.8 Allergy status to other drugs, medicaments and biological substances; Z98.1 Arthrodesis status; I25.2 Old myocardial infarction; Y93.E1 Activity, personal bathing and showering; Y92.012 Bathroom of single-family (private) house as the place of occurrence of the external cause; Z79.4 Long term (current) use of insulin; Z79.02 Long term (current) use of antithrombotics/antiplatelets; Z90.710 Acquired absence of both cervix and uterus; Z72.89 Other problems related to lifestyle; Y99.8 Other external cause status; Z82.49 Family history of ischemic heart disease and other diseases of the circulatory system; Z83.3 Family history of diabetes mellitus; Z79.899 Other long term (current) drug therapy
CPT/HCPCS: 36415; 36600; 70450; 74018; 80048; 80053; 82040; 82140; 82306; 82330; 82607; 82803; 82962; 83970; 84100; 84443; 85025; 96372; 99285; G0378; J1170; J1644; J2405; J7070; Q0162; J1815; J7030